=== PATIENT | male | born 1975 | race Caucasian/White ===

== ENCOUNTER 2016-12-24 12:09 | Emergency (ER) | payer SELFPAY ==
[~2016-12-24] VITALS: Ht 175.3 cm; Wt 70.0 kg
[2016-12-24 12:12] VITALS: BP 137/85
[2016-12-24] MEDS ORDERED: BACITRACIN ZINC OINT UDPKT TOP ONE (12:45)
== END 2016-12-24 13:10 | disposition home or self-care (01) ==
LOC: ER 12:11
DX: Z48.00 Encounter for change or removal of nonsurgical wound dressing (principal)
CPT/HCPCS: 99282

== ENCOUNTER 2017-01-06 12:57 | Emergency (ER) | payer SELFPAY ==
[~2017-01-06] VITALS: Ht 177.8 cm; Wt 68.0 kg
[2017-01-06 20:50] VITALS: BP 112/74
== END 2017-01-06 21:35 | disposition home or self-care (01) ==
LOC: ER 18:47
DX: Z48.02 Encounter for removal of sutures (principal)
CPT/HCPCS: 99281; Z7610